=== PATIENT | female | born 1970 | race Hispanic/Latino ===

== ENCOUNTER 2020-05-15 00:56 | Emergency (ER) | payer OTHER ==
--- NOTE | 2020-05-15 02:49 | ER ---
Nurse's Notes [facility] Name: Ananya Maria Age: 49 yrs Sex: Female : 1970 Arrival Date: 05/15/2020 Time: 00:58 Bed 6 Private MD: Diagnosis: Hypertensive urgency;Anxiety disorder, unspecified Presentation: 05/15 01:24 Chief complaint: Patient's son or daughter states: pt has been having feelings of bb anxiety for approx 5 years feels like her blood pressure gets high which she started feeling tonight her BP was 186/102 she was recently started on anxiety medications but is waiting on lab work to determine if she has HTN. Coronavirus screen: At this time, the client does not indicate any symptoms associated with coronavirus-19. Ebola Screen: No symptoms or risks identified at this time. Initial Sepsis Screen: Does the patient meet any 2 criteria? No. Patient's initial sepsis screen is negative. Does the patient have a suspected source of infection? No. Patient's initial sepsis screen is negative. Risk Assessment: Do you want to hurt yourself or someone else? Patient reports no desire to harm self or others. Onset of symptoms was May 15, 2020. 01:24 Method Of Arrival: Ambulatory bb 01:24 Acuity: ANGLE 3 bb Triage Assessment: : General: Appears obese, Behavior is calm, cooperative. Neuro: Level of Consciousness is bb awake, alert, obeys commands, Oriented to person, place, time, situation. 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 - Social history:: Smoking status: Patient denies any tobacco usage or history of. Screenin:19 Abuse screen: Denies threats or abuse. Denies injuries from another. Nutritional mg2 screening: No deficits noted. Tuberculosis screening: No symptoms or risk factors identified. Fall Risk None identified. Assessment: 02:18 General: Appears in no apparent distress. comfortable, Behavior is calm, cooperative. mg2 Pain: Denies pain. Neuro: Level of Consciousness is awake, alert, obeys commands, Oriented to person, place, time, situation. Cardiovascular: Capillary refill < 3 seconds Patient's skin is warm and dry. Respiratory: Airway is patent Respiratory effort is even, unlabored, Respiratory pattern is regular, symmetrical. GI: No signs and/or symptoms were reported involving the gastrointestinal system. : No signs and/or symptoms were reported regarding the genitourinary system. EENT: No deficits noted. Derm: Skin is intact, is healthy with good turgor, Skin is pink, warm \T\ dry. normal. Musculoskeletal: Circulation, motion, and sensation intact. Capillary refill < 3 seconds. Vital Signs: 01:24 BP 168 / 92; Pulse 103; Resp 16 S; Temp 97.5(O); Pulse Ox 99% on R/A; Weight 127.01 kg bb (R); Height 5 ft. 2 in. (157.48 cm) (R); Pain 0/10; 02:17 BP 139 / 74; Pulse 79; Resp 17; Pulse Ox 100% on R/A; mg2 02:38 BP 130 / 75; Pulse 88; Resp 18; Pulse Ox 99% on R/A; mg2 01:24 Body Mass Index 51.21 (127.01 kg, 157.48 cm) bb ED Course: 00:58 Patient arrived in ED. cf2 01:27 Brando Lozano, RN is Primary Nurse. em 01:27 Triage completed. bb 01:29 Arm band placed on Patient placed in an exam room, on a stretcher, on pulse oximetry. bb Family accompanied patient. 01:30 Jagdish Miranda MD is Attending Physician. tw4 02:19 Patient has correct armband on for positive identification. mg2 02:19 No provider procedures requiring assistance completed. Patient did not have IV access mg2 during this emergency room visit. Administered Medications: 02:52 Not Given (Physician Discretion): cloNIDine 0.1 mg PO once mg2 Outcome: 02:49 Discharge ordered by . tw4 02:59 Discharged to home ambulatory, with family. em 02:59 Condition: good 02:59 Discharge instructions given to patient, family, Instructed on discharge instructions, follow up and referral plans. Demonstrated understanding of instructions, follow-up care. 03:00 Patient left the ED. em Signatures: Brando Lozano RN RN em Ballard, Brenda, RN RN bb Wadley, Terrence, MD MD tw4 Rubén Lee RN RN [facility] [place] [facility] Leon 2
--- NOTE | 2020-05-15 02:50 | EDPHYS ---
Physician Documentation [facility] Name: Ananya Maria Age: 49 yrs Sex: Female : 1970 Arrival Date: 05/15/2020 Time: 00:58 Bed 6 Private MD: ED Physician Jagdish Miranda HPI: 05/15 04:25 This 49 yrs old Female presents to ER via Ambulatory with complaints of High tw4 Blood Pressure, Anxiety. 04:25 The patient has elevated blood pressure and discovered this at home. Onset: The tw4 symptoms/episode began/occurred today. Modifying factors: The symptoms are aggravated by The symptoms are alleviated by. Severity of symptoms: At its worst the blood pressure was moderate. The patient has not experienced similar symptoms in the past. 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 - Social history:: Smoking status: Patient denies any tobacco usage or history of. ROS: 04:25 Constitutional: Negative for fever, chills, and weight loss, Eyes: Negative for injury, tw4 pain, redness, and discharge, Cardiovascular: Negative for chest pain, palpitations, and edema, Respiratory: Negative for shortness of breath, cough, wheezing, and pleuritic chest pain, Abdomen/GI: Negative for abdominal pain, nausea, vomiting, diarrhea, and constipation, Back: Negative for injury and pain, MS/Extremity: Negative for injury and deformity, Skin: Negative for injury, rash, and discoloration, Neuro: Negative for headache, weakness, numbness, tingling, and seizure. 04:25 Psych: Positive for anxiety. tw4 Exam: 04:25 Constitutional: This is a well developed, well nourished patient who is awake, alert, tw4 and in no acute distress. Head/Face: Normocephalic, atraumatic. Chest/axilla: Normal chest wall appearance and motion. Nontender with no deformity. No lesions are appreciated. Cardiovascular: Regular rate and rhythm with a normal S1 and S2. No gallops, murmurs, or rubs. Normal PMI, no JVD. No pulse deficits. Respiratory: Lungs have equal breath sounds bilaterally, clear to auscultation and percussion. No rales, rhonchi or wheezes noted. No increased work of breathing, no retractions or nasal flaring. Abdomen/GI: Soft, non-tender, with normal bowel sounds. No distension or tympany. No guarding or rebound. No evidence of tenderness throughout. Back: No spinal tenderness. No costovertebral tenderness. Full range of motion. Skin: Warm, dry with normal turgor. Normal color with no rashes, no lesions, and no evidence of cellulitis. MS/ Extremity: Pulses equal, no cyanosis. Neurovascular intact. Full, normal range of motion. Neuro: Awake and alert, GCS 15, oriented to person, place, time, and situation. Cranial nerves II-XII grossly intact. Motor strength 5/5 in all extremities. Sensory grossly intact. Cerebellar exam normal. Normal gait. Vital Signs: 01:24 BP 168 / 92; Pulse 103; Resp 16 S; Temp 97.5(O); Pulse Ox 99% on R/A; Weight 127.01 kg bb (R); Height 5 ft. 2 in. (157.48 cm) (R); Pain 0/10; 02:17 BP 139 / 74; Pulse 79; Resp 17; Pulse Ox 100% on R/A; mg2 02:38 BP 130 / 75; Pulse 88; Resp 18; Pulse Ox 99% on R/A; mg2 01:24 Body Mass Index 51.21 (127.01 kg, 157.48 cm) bb MDM: 01:30 Patient medically screened. tw4 04:27 Differential diagnosis: hypertensive crisis, Malignant HTN. Data reviewed: vital signs, tw4 nurses notes. Data interpreted: Pulse oximetry: Interpretation: normal. Counseling: I had a detailed discussion with the patient and/or guardian regarding: the historical points, exam findings, and any diagnostic results supporting the discharge/admit diagnosis. Special discussion: I discussed with the patient/guardian in detail that at this point there is no indication for admission to the hospital. It is understood, however, that if the symptoms persist or worsen the patient needs to return immediately for re-evaluation. Administered Medications: 02:52 Not Given (Physician Discretion): cloNIDine 0.1 mg PO once mg2 Disposition: 05/15/20 02:49 Discharged to Home. Impression: Hypertensive urgency, Anxiety disorder, unspecified. - Condition is Stable. - Discharge Instructions: Panic Attacks, Hypertension, Social Anxiety Disorder, Generalized Anxiety Disorder. - Medication Reconciliation Form, Thank You Letter, Antibiotic Education, Prescription Opioid Use form. - Follow up: Private Physician; When: Upon discharge from the Emergency Department; Reason: Recheck today's complaints, Continuance of care, Re-evaluation by your physician. - Problem is new. - Symptoms have improved. Signatures: Brando Lozano RN RN em Mary Mcfadden RN RN Jagdish Peres MD MD tw4 Rubén Lee RN mg2 Corrections: (The following items were deleted from the chart) 03:00 02:49 05/15/2020 02:49 Discharged to Home. Impression: Hypertensive urgency; Anxiety em disorder, unspecified. Condition is Stable. Forms are Medication Reconciliation Form, Thank You Letter, Antibiotic Education, Prescription Opioid Use. Follow up: Private Physician; When: Upon discharge from the Emergency Department; Reason: Recheck today's complaints, Continuance of care, Re-evaluation by your physician. Problem is new. Symptoms have improved. tw4
[2020-05-15 05:34] VITALS: TEMP 97.5
[2020-05-15 05:37] VITALS: BP 130/75; O2SAT 99
== END 2020-05-15 03:00 | disposition home or self-care (01) ==
LOC: ER 00:56
DX: I16.0 Hypertensive urgency (principal)
CPT/HCPCS: 99283